=== PATIENT | female | born 1955 | race Caucasian/White ===

== ENCOUNTER 2017-01-03 07:31 | Emergency (ER) | payer SELFPAY ==
[2017-01-03 07:43] VITALS: BP 146/75
--- NOTE | 2017-01-03 08:23 | RAD ---
HISTORY: Left hand trauma COMPARISONS: None VIEWS: 4, Frontal, lateral, and oblique views of the left hand FINDINGS: BONE DENSITY: Normal. BONES: There is no displaced fracture. 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 ALIGNMENT: There is no dislocation. SOFT TISSUES: Unremarkable. OTHER FINDINGS: None. IMPRESSION: OSTEOARTHRITIS. NO ACUTE OSSEOUS INJURY. IF SYMPTOMS PERSIST, RECOMMEND REPEAT IMAGING.
--- NOTE | 2017-01-03 08:45 | UC ---
Hand/Wrist HPI - HPI Summary HPI Summary: ACCIDENTALLY HAD LEFT HAND CLOSED INTO A DOOR WHILE AT WORK TODAY. HAS SWELLING AND BRUISING. - History Of Current Complaint Chief Complaint: UCUpperExtremity Stated Complaint: HAND INJURY Time Seen by Provider: 01/03/17 07:46 Hx Obtained From: Patient Onset/Duration: Sudden Onset, Lasting Hours Severity Initially: Moderate Severity Currently: Moderate Pain Intensity: 6 Pain Scale Used: 0-10 Numeric Character Of Pain: Dull, Aching Aggravating Factor(s): Movement Alleviating Factor(s): Rest, Ice Associated Signs And Symptoms: Positive: Swelling, Bruising Related History: Dominant Hand Right - Allergies/Home Medications Allergies/Adverse Reactions: Allergies Allergy/AdvReac Type Severity Reaction Status Date / Time No Known Allergies Allergy Verified 03/01/16 09:14 PMH/Surg Hx/FS Hx/Imm Hx Endocrine History: Hypothyroidism Cardiovascular History: Hypertension - Surgical History Surgical History: Yes Surgery Procedure, Year, and Place: LEFT KNEE [id number]. VARICOSE VEIN SURGERY LEFT [id number] - Family History Known Family History: Positive: Hypertension - Social History Alcohol Use: None Substance Use Type: None Smoking Status (MU): Never Smoked Tobacco Review of Systems Constitutional: Negative Skin: Bruising Respiratory: Negative Cardiovascular: Negative Gastrointestinal: Negative Musculoskeletal: Arthralgia, Edema All Other Systems Reviewed And Are Negative: Yes Physical Exam Triage Information Reviewed: Yes Appearance: Well-Appearing, No Pain Distress, Well-Nourished Vital Signs: Initial Vital Signs Temp 98.7 F 01/03/17 07:39 Pulse 66 01/03/17 07:39 Resp 16 01/03/17 07:39 BP 146/75 01/03/17 07:39 Pulse Ox 99 01/03/17 07:39 Vital Signs Reviewed: Yes Eyes: Positive: Conjunctiva Clear ENT: Positive: Hearing grossly normal Neck: Positive: Supple Respiratory: Positive: No respiratory distress, No accessory muscle use Cardiovascular: Positive: Pulses Normal Abdomen Description: Positive: Soft Musculoskeletal: Positive: ROM Intact, Edema @ - DORSUM OF LEFT HAND OVERLYING 2ND AND 3RD METACARPALS Neurological: Positive: Alert Psychological: Positive: Age Appropriate Behavior Skin: Positive: Other - BRUISING LEFT HAND. Negative: rashes Diagnostics - Radiology LEFT HAND XRAYS Xray Interpretation: No Acute Changes Radiology Interpretation Completed By: Radiologist Hand/Wrist Course/Dx - Differential Dx/Diagnosis Provider Diagnoses: CONTUSION LEFT HAND Discharge - Discharge Plan Condition: Stable Disposition: HOME Patient Education Materials: Contusion in Adults (ED) Forms: *Work Release Referrals: Carine Faust MD [Primary Care Provider] - If Needed Additional Instructions: CONTUSION: Your injury has resulted in a contusion -- a crushing of the deep tissues. No injury to important structures was detected during the physician's exam. Contusions vary in the amount of pain they cause, and in the length of time required for healing. Typically, the area will become bruised, and will remain painful to touch for two or three weeks. However, most patients are back to working and playing within a few days. After the initial period of rest and cold-packs, your symptoms (together with the doctor's recommendations) will determine how rapidly you can get back to full activity. Usually this means "do what feels okay, but don't do things that hurt." If re-examination was recommended, it's important to follow up as instructed. Call the doctor or return any time if pain increases, if swelling becomes severe, if you develop numbness or weakness in an injured extremity, or if any other alarming symptoms occur. XRAYS TODAY UNREMARKABLE REST, ICE, COMPRESS, ELEVATE FOLLOW-UP IF NOT IMPROVING EXPECTED
== END 2017-01-03 08:53 | disposition home or self-care (01) ==
LOC: UCEAST 07:31
DX: S60.222A Contusion of left hand, initial encounter (principal); W23.0XXA Caught, crushed, jammed, or pinched between moving objects, initial encounter; Y92.9 Unspecified place or not applicable; I10 Essential (primary) hypertension; E03.9 Hypothyroidism, unspecified
CPT/HCPCS: 99211; G0463

== ENCOUNTER 2018-11-30 08:05 | Emergency (ER) | payer BC, MEDICARE ==
[2018-11-30] MEDS ORDERED: predniSONE TAB* 50 MG PO ONE (08:28)
[2018-11-30] MEDS ORDERED: Ketorolac *IM* INJ* 60 MG/2 ML VIAL IM ONE (08:28)
[2018-11-30] MEDS ORDERED: HYDROcodone/ACETAMIN 5-325 MG* 1 TAB PO ONE (08:29)
--- NOTE | 2018-11-30 08:31 | ED ---
Back Pain - HPI Summary HPI Summary: Patient is a 63-year-old otherwise healthy female presenting to the ED with left -sided low back pain present 2 weeks. She states the pain has been worsening over the past 2 weeks. She remains ambulatory, but with discomfort. She denies any weakness in the bilateral lower extremities. She denies any numbness or tingling. Denies any bladder or bowel dysfunction. She's been taking a medication similar to ibuprofen which she has received from her country. She states this has been the medication that has helped her the most. She has not used heat or gentle stretches for relief. She has had this similar pain in the past and had a CT obtained, but does not recall the results. She is endorsing acute left-sided low back pain over the sciatic notch radiating through to the buttocks, left lateral portion of the upper leg, left lower leg and the outside of the foot. She does not endorse pain to these areas, however but a strange sensation. She was ambulatory when she arrived. Symptoms are improved with lying flat and worse with movement. No saddle or perinnial anesthesia per patient. - History of Current Complaint Chief Complaint: EDBackInjuryPain Stated Complaint: BACK PAIN PER PT Time Seen by Provider: 11/30/18 08:10 Hx Obtained From: Patient Onset/Duration: Sudden Onset Onset/Duration: Started Weeks Ago Timing: Constant Back Pain Location: Is Discrete @ - left sided low back pain Pain Intensity: 10 Pain Scale Used: 0-10 Numeric Character: Aching Aggravating Symptom(s): Movement, Lifting, Bending Alleviating Symptom(s): Rest, Position Associated Signs And Symptoms: Positive: Negative - Risk Factors AAA Risk Factors: Negative TAD Risk Factors: Negative Cauda Equina Risk Factors: Negative Epidural Abscess Risk Factors: Negative - Allergies/Home Medications Allergies/Adverse Reactions: Allergies Allergy/AdvReac Type Severity Reaction Status Date / Time No Known Allergies Allergy Verified 11/30/18 08:23 Home Medications: Home Medications Gabapentin CAP(*) [Neurontin 100 mg CAP(*)] 300 mg PO BEDTIME 11/30/18 [History Confirmed 11/30/18] PMH/Surg Hx/FS Hx/Imm Hx Previously Healthy: Yes Endocrine/Hematology History: Reports: Hx Thyroid Disease - ON MEDICATION FOR Denies: Hx Diabetes Cardiovascular History: Reports: Hx Hypertension - ON MEDICATION, Other Cardiovascular Problems/Disorders - STRESS TEST 2014 Denies: Hx Pacemaker/ICD Musculoskeletal History: Reports: Hx Arthritis Sensory History: Reports: Hx Cataracts, Hx Contacts or Glasses - READING GLASSES Denies: Hx Hearing Aid Opthamlomology History: Reports: Hx Cataracts, Hx Contacts or Glasses - READING GLASSES - Surgical History Surgery Procedure, Year, and Place: LEFT KNEE [id number]. VARICOSE VEIN SURGERY LEFT [id number] Hx Anesthesia Reactions: No - Immunization History Hx Pertussis Vaccination: No Immunizations Up to Date: Yes Infectious Disease History: No Infectious Disease History: Denies: History Other Infectious Disease, Traveled Outside the [place] in Last 30 Days - Family History Known Family History: Positive: Hypertension - Social History Occupation: Unemployed Lives: With Family Alcohol Use: None Hx Substance Use: No Substance Use Type: Reports: None Hx Tobacco Use: No Smoking Status (MU): Never Smoked Tobacco Review of Systems Constitutional: Negative Negative: Fever, Chills, Fatigue, Skin Diaphoresis Negative: Palpitations, Chest Pain Negative: Shortness Of Breath, Cough Genitourinary: Negative Positive: no symptoms reported, see HPI Positive: Arthralgia - back pain - L side Skin: Negative All Other Systems Reviewed And Are Negative: Yes Physical Exam Triage Information Reviewed: Yes Vital Signs On Initial Exam: Initial Vitals Temp Pulse Resp BP Pulse Ox 97.8 F 83 16 180/88 99 11/30/18 08:07 11/30/18 08:07 11/30/18 08:07 11/30/18 08:07 11/30/18 08:07 Vital Signs Reviewed: Yes Appearance: Positive: Well-Appearing, Pain Distress, Obese Skin: Positive: Warm, Skin Color Reflects Adequate Perfusion Head/Face: Positive: Normal Head/Face Inspection Eyes: Positive: Conjunctiva Clear Neck: Positive: Supple, Nontender, No Lymphadenopathy Respiratory/Lung Sounds: Positive: Clear to Auscultation, Breath Sounds Present Cardiovascular: Positive: RRR, Pulses are Symmetrical in both Upper and Lower Extremities. Negative: Leg Edema Left, Leg Edema Right Bowel Sounds: Positive: Present Musculoskeletal: Positive: Other - pain over sciatic notch - no pain directly over spine and no step off - no signs of trauma - not worse with palpation over sciatic area or buttocks. decreased sensation to the L outer lower extremity with involvment of the foot - no foot drop. Neurological: Positive: Sensory/Motor Intact, Reflexes Intact, Normal Gait, Speech Normal Psychiatric: Positive: Normal, Affect/Mood Appropriate Diagnostics - Vital Signs Vital Signs Temp Pulse Resp BP Pulse Ox 11/30/18 08:07 97.8 F 83 16 180/88 99 - Laboratory Lab Statement: Any lab studies that have been ordered have been reviewed, and results considered in the medical decision making process. Back Pain Course/Dx - Course Course Of Treatment: This patient is evaluated for acute left-sided low back pain. She isn't worsening pain over the sciatic notch to the left side, radiating down into the buttocks, to the left lateral upper leg and left lateral lower leg also involving the left side of the foot. Denies any foot drop. Denies any weakness. She states the area feels "funny" but denies any numbness or tingling. Denies any bladder or bowel dysfunction or tingling sensation to the inner thighs bilaterally. She states this is happened to her before. She's been taking ibuprofen at home with minimal relief. Discussed obtaining a CT with the patient and recommended conservative treatment at this time. Patient states she is okay with this plan. She is given hydrocodone, Toradol, prednisone and heat packs while in the ED. She is also given lidocaine patch. Sxs improved but continue to c/o pain not "going away." I have discussed this is to dull/help the pain, but pain will continue until the nerve root is released. I have encouraged follow up with pcp, massage, physical therapy. - Diagnoses Differential Diagnosis/HQI/PQRI: Positive: Herniated Disc, Strain, Sprain Provider Diagnoses: Sciatica, Lumbar radicular pain, Piriformis syndrome Discharge ED - Sign-Out/Discharge Documenting (check all that apply): Patient Departure Patient Received Moderate/Deep Sedation with Procedure: No - Discharge Plan Condition: Stable Disposition: HOME Prescriptions: HYDROcodone/ACETAMIN 5-325 MG* [[place] 5-325 TAB*] 1 tab PO Q4H PRN #18 tab MDD 6 PRN Reason: Pain Ketorolac TAB * [Toradol TAB *] 10 mg PO Q6H #16 tab predniSONE TAB* [Deltasone TAB*] 50 mg PO DAILY #5 tab MDD 1 Patient Education Materials: Sciatica (ED), Lumbar Radiculopathy (ED), Lower Back Exercises (ED) Referrals: Carine Faust MD [Primary Care Provider] - Additional Instructions: Please follow up with PCP Prednisone once daily 5 days, take this in the morning and start tomorrow Hydrocodone up to every 4 hours as needed for pain, do not take Tylenol with taking this medication Toradol 4 times daily 4 days; do not take ibuprofen or similar medications will taking this medication He will need close follow-up with her PCP to assess for the need for further imaging Moist heat to the area as much as possible Gentle stretches - Billing Disposition and Condition Condition: STABLE Disposition: Home
[2018-11-30] MEDS ORDERED: Lidocaine PATCH 5%* 1 PATCH ONE (09:34)
[2018-11-30 09:44] VITALS: BP 168/97
[2018-11-30] MEDS ORDERED: Lidocaine Patch REMOVE* 1 NOTE MISC SCH (21:00)
[2018-12-01] MEDS ORDERED: Lidocaine PATCH 5%* 1 PATCH TRANSDERM SCH (09:00)
== END 2018-11-30 09:44 | disposition home or self-care (01) ==
LOC: ED 08:05
DX: M54.40 Lumbago with sciatica, unspecified side (principal); M54.16 Radiculopathy, lumbar region; E07.9 Disorder of thyroid, unspecified; I10 Essential (primary) hypertension; Z79.82 Long term (current) use of aspirin; Z79.899 Other long term (current) drug therapy
CPT/HCPCS: 96372; 99282; A9270-GY; J1885; J7512

== ENCOUNTER 2024-01-15 09:58 | Observation (INO) ==
[2024-01-15] MEDS ORDERED: KETAMINE HCL 10 MG/ML 20 ml VIAL (200 MG) ONE (10:08)
[2024-01-15] MEDS ORDERED: Propofol 10 MG/ML 20 ML BTL ONE ×2 (10:08→13:54)
[2024-01-15] MEDS ORDERED: Lidocaine 2% PF 5 ML VIAL ONE (10:08)
[2024-01-15] MEDS: Buffered Lidocaine 1% SYRIN 1 ml INTRADERM ONE (10:31)
[2024-01-15] MEDS ORDERED: Dexamethasone IV 4 MG/ML VIAL 1 ml VIAL ONE (10:56)
[2024-01-15] MEDS ORDERED: Famotidine IV 10 MG/ML 2 ml VIAL (20 mg) ONE (10:56)
[2024-01-15] MEDS ORDERED: ceFAZolin 2 GM PREMIX 2 GM/50 ML BAG ONE (10:56)
[2024-01-15] MEDS ORDERED: Tranexamic Acid 1 GM/100ML BAG 2,000 MG/200 ML BAG IV ONE (10:57)
[2024-01-15] MEDS: Dexamethasone IV 4 MG/ML VIAL 1 ml VIAL IV SLOW PU ONE (11:01)
[2024-01-15] MEDS: Famotidine IV 10 MG/ML 2 ml VIAL (20 mg) IV ONE (11:01)
[2024-01-15] MEDS: Lactated Ringers 1000 ml BAG 1,000 ML IV SCH ×2 (11:01→17:00)
[2024-01-15 11:03] LABS: Rapid COVID-19 Molecular Undetected (Undetected)
[2024-01-15 11:08] LABS: INR 1.01 (0.85-1.14)
[2024-01-15] MEDS ORDERED: fentaNYL 100 mcg/2 ml 50 MCG/ML VIAL ONE (11:40)
[2024-01-15] MEDS ORDERED: Midazolam 2 mg/2 ml VIAL 1 mg/ml 2 ml VIAL (2 mg) ONE ×2 (11:40→12:37)
[2024-01-15] MEDS ORDERED: ROPIVACAINE 5 MG/ML 30 ML BTL (0.5%) ONE ×2 (11:41→12:30)
[2024-01-15] MEDS ORDERED: Ondansetron ODT 4 mg TAB 4 MG TAB PO PRN (12:34)
[2024-01-15] MEDS ORDERED: Magnesium Hydroxide LIQ 30 ML UDC PO PRN (12:34)
[2024-01-15] MEDS ORDERED: Morphine 2 MG/ML SYRINGE IV PRN (12:34)
[2024-01-15] MEDS ORDERED: Lactulose 30 ml UDC PO PRN (12:34)
[2024-01-15] MEDS ORDERED: Calcium Carb (TUMS) 500 mg CHEW TAB PO PRN (12:34)
[2024-01-15] MEDS ORDERED: Glycopyrrolate IV 0.2 MG/ML 1 ML VIAL ONE (12:56)
[2024-01-15] MEDS ORDERED: Naloxone 0.4 mg VIAL 0.4 mg/ml 1 ml VIAL IV PRN (12:57)
[2024-01-15] MEDS ORDERED: Morphine 4 MG/ML VIAL (1 ml) IV PRN (12:57)
[2024-01-15] MEDS ORDERED: fentaNYL 100 mcg/2 ml 50 MCG/ML VIAL IV PRN (12:57)
[2024-01-15] MEDS ORDERED: Prochlorperazine 5 mg/ml 2 ml VIAL (10 mg) IV PRN (12:57)
[2024-01-15] MEDS ORDERED: Ondansetron 4 mg VIAL 2 MG/ML 2 ml VIAL ONE (13:52)
[2024-01-15] MEDS: Magnesium Hydroxide LIQ 30 ML UDC PO SCH (21:45)
[2024-01-15] MEDS: ceFAZolin 2 GM PREMIX 2 GM/50 ML BAG IV SCH (21:47)
[2024-01-16 06:05] LABS: Hematocrit 33.8 % (35-45); Hemoglobin 11.4 g/dL (11.5-14.3); Mean Platelet Volume 8.7 fL (7.5-11.2); Platelet Count 231 10^3/uL (150-450)
[2024-01-16 06:23] LABS: Calcium 8.8 mg/dL (8.6-10.3); Creatinine, Serum 0.86 mg/dL (0.51-0.95); Potassium 4.1 mmol/L (3.5-5.0); eGFR CKD-EPI 72.6 (>60)
[2024-01-16] MEDS: Vitamin THERAPEUTIC TAB PO SCH (08:40)
[2024-01-16] MEDS ORDERED: Losartan/HCTZ 100/25 TAB (NF) PO SCH (09:00)
[2024-01-16] MEDS: Ondansetron 4 mg VIAL 2 MG/ML 2 ml VIAL IV PRN (09:52)
[2024-01-16 14:00] VITALS: BP 147/70
== END 2024-01-16 14:25 | disposition home or self-care (01) ==
LOC: INTOOBSV 09:58 → AA 09:58 → SSU 12:34
PROVIDERS: ADMIT Orthopaedic Surgery Adult Reconstructive Orthopaedic Surgery; ATTEND Orthopaedic Surgery Adult Reconstructive Orthopaedic Surgery